=== PATIENT | female | born 1995 | race Two or more races ===

== ENCOUNTER 2020-05-07 06:24 | Inpatient (IN) ==
[2020-05-07] MEDS ORDERED: D5LR 1L W PITOCIN 10 UNITS/L 10 UNITS/1,000 ML BAG IV PRN (07:00)
[2020-05-07] MEDS ORDERED: D5 1/2 NS 1000 ML 1,000 ML IV SCH (07:00)
[2020-05-07] MEDS ORDERED: D5 1/2 NS 1000 ML 1,000 ML IV ONE (07:03)
[2020-05-07] MEDS ORDERED: PITOCIN ONE (07:03)
[2020-05-07] MEDS ORDERED: BETADINE SOLN ONE (07:22)
[2020-05-07] MEDS ORDERED: D5LR 1L W PITOCIN 10 UNITS/L 10 UNITS/1,000 ML BAG IV ONE (07:24)
[2020-05-07] MEDS ORDERED: D5 1/2 NS 1L W PITOCIN 20 UNITS/L 20 UNITS/1,000 ML BAG IV ONE (07:25)
[2020-05-07] MEDS ORDERED: REGLAN INJ 10 MG VIAL IVP PRN (07:41)
[2020-05-07] MEDS ORDERED: PHENERGAN INJ 25 MG IM PRN ×2 (07:41→10:06)
[2020-05-07] MEDS ORDERED: PITOCIN IVP ONE (07:41)
[2020-05-07] MEDS ORDERED: STADOL INJ IVP PRN (07:45)
[2020-05-07 08:12] LABS: BASOPHILS # (AUTO) 0.1 X10^3/uL (0.0-0.1); BASOPHILS % (AUTO) 0.9 % (0.2-1.0); EOSINOPHILS % (AUTO) 0.4 % (0.9-2.9); HEMATOCRIT 35.7 % (36.0-47.0); HEMOGLOBIN 11.9 g/dL (12.0-16.0); LYMPHOCYTES # (AUTO) 1.6 X10^3/uL (1.3-2.9); LYMPHOCYTES % (AUTO) 15.1 % (21.0-51.0); MEAN CORPUSCULAR HEMOGLOBIN 26.3 pg (27.0-34.0); MEAN CORPUSCULAR HGB CONC 33.4 g/dL (33.0-35.0); MEAN CORPUSCULAR VOLUME 78.8 fL (80.0-100.0); MEAN PLATELET VOLUME 8.8 fL (7.4-11.0); MONOCYTES # (AUTO) 0.6 x10^3/uL (0.3-0.8); MONOCYTES % (AUTO) 5.9 % (0.0-13.0); NEUTROPHILS # (AUTO) 8.2 x10^3/uL (2.2-4.8); NEUTROPHILS % (AUTO) 77.7 % (42.0-75.0); PLATELET COUNT 217 X10^3/uL (150.0-450.0); RED BLOOD COUNT 4.53 X10^6/uL (3.5-5.4); RED CELL DISTRIBUTION WIDTH 14.7 % (11.6-16.5); WHITE BLOOD COUNT 10.5 X10^3/uL (3.6-10.0)
[2020-05-07 08:15] LABS: BLOOD UREA NITROGEN 8 mg/dL (7-18); CALCIUM 8.8 mg/dL (8.5-10.1); CARBON DIOXIDE 23.5 mmol/L (21-32); CHLORIDE 102 mmol/L (98-107); CREATININE 0.58 mg/dL (0.55-1.02); SODIUM 135 mmol/L (136-145); eGFR NON BLACK RACES > 60 (>60)
[2020-05-07] MEDS ORDERED: STADOL INJ ONE (08:29)
[2020-05-07] MEDS ORDERED: XYLOCAINE 1 % (PLAIN) ONE (09:47)
[2020-05-07] MEDS ORDERED: MOTRIN TAB 800 MG PO PRN (10:06)
[2020-05-07] MEDS ORDERED: AMBIEN PO PRN (10:54)
[2020-05-07] MEDS ORDERED: DERMOPLAST PAIN RELIEF SPRAY TOP PRN (10:54)
[2020-05-07] MEDS ORDERED: MILK OF MAGNESIA PO PRN (10:54)
[2020-05-07] MEDS ORDERED: D5 1/2 NS 1000 ML 1,000 ML with PITOCIN 20 UNITS IV SCH ×2 (11:00)
[2020-05-08 05:52] LABS: HEMATOCRIT 30.2 % (36.0-47.0); HEMOGLOBIN 10.2 g/dL (12.0-16.0)
[2020-05-08] MEDS ORDERED: PRENATAL PLUS PO SCH (09:00)
[2020-05-08 13:24] VITALS: BP 117/67
== END 2020-05-08 14:40 | disposition home or self-care (01) | DRG 807 ==
LOC: LD 06:24 → MED/SURG 13:41
PROVIDERS: ADMIT Obstetrics & Gynecology Obstetrics; ATTEND Obstetrics & Gynecology Obstetrics
DX: O70.0 First degree perineal laceration during delivery; Z3A.40 40 weeks gestation of pregnancy; O26.893 Other specified pregnancy related conditions, third trimester; Z37.0 Single live birth
CPT/HCPCS: 36415; 59409; 80048; 85014; 85018; 85025; 86592; 86850; 86900; 86901; A4222; J0595; J2590; S5010